=== PATIENT | male | born 1965 | race African-American/Black ===

== ENCOUNTER 2018-03-24 13:54 | Emergency (ER) | payer BC ==
[2018-03-24 14:58] LABS: #Lymphocytes 1.4 thou/uL (1.20-3.40); #Monocytes 0.5 thou/uL (0.11-0.59); #Neutrophils 4.1 thou/uL (1.40-6.50); %Basophils 0.7 % (0.0-1.0); %Eosinophils 0.6 % (0.0-10.0); %Lymphocytes 23.8 % (21.0-51.0); %Monocytes 7.6 % (0.0-10.0); %Neutrophils 67.4 % (42.0-75.0); Hemoglobin 16.1 g/dL (14.0-18.0); Mean Corpuscular HGB CONC 32.4 g/dL (32.0-36.0); Mean Corpuscular Hemoglobin 28.7 pg (27.0-31.0); Mean Corpuscular Volume 88.5 fL (78.0-98.0); Mean Platelet Volume 6.4 fL (7.4-10.4); Platelet Count 367 thou/uL (130-400); RBC Distribution Width 11.2 % (11.5-14.5); Red Blood Cell (RBC) Count 5.61 mill/uL (4.70-6.10)
[2018-03-24] MEDS ORDERED: Metoclopramide HCl 10 MG/2 ML VIAL ONE (15:19)
[2018-03-24] MEDS ORDERED: diphenhydrAMINE 25 MG CAP ONE (15:19)
[2018-03-24 15:20] LABS: ALT (SGPT) 38 U/L (8-55); AST (SGOT) 27 U/L (5-34); Alkaline Phosphatase 96 U/L (40-150); Anion Gap 13 mmol/L (10-20); BUN (Urea Nitrogen) 30 mg/dL (8.4-25.7); Bilirubin, Total 0.8 mg/dL (0.2-1.2); Calc. Creatinine Clearance 0 mL/min (70-130); Calcium 10.1 mg/dL (7.8-10.44); Carbon Dioxide 27 mmol/L (22-29); Chloride 99 mmol/L (98-107); Estimated GFR-MDRD 56; Globulin 3.6 g/dL (2.4-3.5); Glucose 102 mg/dL (70-105); Potassium 4.3 mmol/L (3.5-5.1); Protein, Total 8.6 g/dL (6.0-8.3); Sodium 135 mmol/L (136-145)
[2018-03-24] MEDS ORDERED: diphenhydrAMINE 50 MG/ML VIAL ONE (15:23)
[2018-03-24 15:47] LABS: CKMB 1.1 ng/mL (0-6.6); Troponin I Less than 0.010 ng/mL (< 0.028)
== END 2018-03-24 17:10 | disposition home or self-care (01) ==
LOC: ERS 13:54
DX: R51 Headache (principal); R53.83 Other fatigue; R60.9 Edema, unspecified; I10 Essential (primary) hypertension; Z79.899 Other long term (current) drug therapy
CPT/HCPCS: 36415; 80053; 82553; 83880; 84484; 85025; 87804; 93005; 96365; 96375; J1200; J2765

== ENCOUNTER 2019-07-10 12:39 | Outpatient (CLI) | payer BC ==
--- NOTE | 2019-07-10 13:05 | RAD ---
XR Knee Lt 4 View STANDARD HISTORY: Medial left knee pain FINDINGS: No fracture or dislocation is identified. There are mild degenerative changes.
--- NOTE | 2019-07-10 13:06 | RAD ---
EXAM: 3 views of the sacroiliac joints HISTORY: Sacroiliitis COMPARISON: None FINDINGS: 3 views of the sacrum shows a symmetric appearance of the sacroiliac joints. No fusion of t he joints is seen. No surrounding erosions are present. No significant sclerosis is seen. IMPRESSION: No significant abnormality
== END 2019-07-10 12:40 | disposition home or self-care (01) ==
LOC: BICRAD 12:39
PROVIDERS: ATTEND Internal Medicine Rheumatology
DX: M46.1 Sacroiliitis, not elsewhere classified (principal); M25.562 Pain in left knee
CPT/HCPCS: 72202

== ENCOUNTER 2021-05-26 11:33 | Outpatient (CLI) | payer BC ==
[2021-05-26 12:48] LABS: #Eosinphils 0.2 10x3/uL (0.0-0.5); #Monocytes 0.3 10x3/uL (0.0-1.1); #Neutrophils 1.8 10x3/uL (1.5-8.4); %Basophils 0.8 % (0.0-2.0); %Eosinophils 5.6 % (0.0-6.0); %Lymphocytes 39.1 % (18.0-47.0); %Monocytes 8.4 % (0.0-10.0); %Neutrophils 45.8 % (40.0-75.0); Hemoglobin 15.3 g/dL (13.5-17.5); Mean Corpuscular HGB CONC 34.5 g/dL (32.0-36.0); Mean Corpuscular Volume 86.9 fl (81.2-95.1); Mean Platelet Volume 8.7 fl (7.4-10.4); Platelet Count 339 10x3/uL (150-450); RBC Distribution Width 11.4 % (11.5-14.5); White Blood Cell (WBC) Count 3.9 10x3/uL (3.5-10.5)
[2021-05-26 12:58] LABS: Anion Gap 10 mmol/L (10-20); BUN (Urea Nitrogen) 15 mg/dL (8.4-25.7); Calc. Creatinine Clearance 0 mL/min (70-130); Calcium 9.3 mg/dL (7.8-10.44); Carbon Dioxide 31 mmol/L (22-29); Chloride 104 mmol/L (98-107); Glucose 89 mg/dL (70-105); Potassium 3.8 mmol/L (3.5-5.1); Sodium 141 mmol/L (136-145)
[2021-05-26 22:27] LABS: SARS-CoV-2 PCR by NAA Not Detected (NotDetected)
== END 2021-05-26 11:34 | disposition home or self-care (01) ==
LOC: LABBT 11:33
PROVIDERS: ATTEND Surgery
DX: Z01.818 Encounter for other preprocedural examination (principal); Z20.822 Contact with and (suspected) exposure to COVID-19
CPT/HCPCS: 80048; 85025; 93005; 93010; U0003; U0005

== ENCOUNTER 2021-12-27 07:58 | Observation (INO) | payer BC ==
[2021-12-27] MEDS ORDERED: Acetaminophen 325 MG TAB PO PRN (10:04)
[2021-12-27 10:11] VITALS: BMI 25.4
[2021-12-27] MEDS ORDERED: Cyclobenzaprine 10 MG TAB PO PRN (10:49)
[2021-12-27] MEDS ORDERED: hydrALAZINE 20 MG/ML VIAL SLOW IVP PRN (10:50)
[2021-12-27 10:53] LABS: Troponin I Less than 0.010 ng/mL (< 0.028)
[2021-12-27] MEDS ORDERED: Regadenoson 0.4 MG/5 ML SYRINGE ONE (12:22)
[2021-12-27 15:35] LABS: Troponin I Less than 0.010 ng/mL (< 0.028)
[2021-12-27 16:19] VITALS: BP 140/84; TEMP 97.9
[2021-12-27] MEDS ORDERED: Amlodipine 5 MG TAB PO SCH (21:00)
[2021-12-28] MEDS ORDERED: ASCORBIC ACID 100 MG PO SCH (09:00)
[2021-12-28] MEDS ORDERED: VITAMIN A 2400 MCG PO SCH (09:00)
[2021-12-28] MEDS ORDERED: Aspirin 81 mg Enteric Coated Tablet PO SCH (09:00)
[2021-12-28] MEDS ORDERED: Thiamine 100 MG TAB PO SCH (09:00)
[2021-12-28] MEDS ORDERED: RIBOFLAVIN 50 MG PO SCH (09:00)
[2021-12-28] MEDS ORDERED: Nebivolol HCl 5 MG TAB PO SCH (09:00)
== END 2021-12-27 17:15 | disposition home or self-care (01) ==
LOC: 2SW 07:58
PROVIDERS: ADMIT Internal Medicine; ATTEND Internal Medicine
DX: R07.9 Chest pain, unspecified (principal); I12.9 Hypertensive chronic kidney disease with stage 1 through stage 4 chronic kidney disease, or unspecified chronic kidney disease; N18.2 Chronic kidney disease, stage 2 (mild); M19.90 Unspecified osteoarthritis, unspecified site; Z87.891 Personal history of nicotine dependence; Z79.82 Long term (current) use of aspirin; Z79.899 Other long term (current) drug therapy
CPT/HCPCS: 36415; 78452; 84484; 93017; A9500; G0378; J2785